=== PATIENT | female | born 1985 | race Caucasian/White ===

== ENCOUNTER 2018-09-25 17:12 | Emergency (ER) | payer OTHER, MEDICAID, SELFPAY ==
[2018-09-25 17:29] VITALS: BP 117/74; PULSE 84; RESP 20; TEMP 36.3; O2SAT 98; BMI 25.0
--- NOTE | 2018-09-25 18:58 | DI.US.S_ITS ---
PROCEDURE: US EXTREMELY NONVASC UPPER RT INDICATIONS: OPEN WOUND; POSSIBLE ABSCESS TECHNIQUE: Real-time scanning was performed of the posterior right forearm, with image documentation. COMPARISON: None. FINDINGS: Grayscale color Doppler images of the area of clinical concern demonstrates diffuse subcutaneous soft tissue edema and skin thickening without focal fluid collection or suspicious mass lesion. IMPRESSION: No sonographic evidence for abscess or phlegmon formation. Dictated by: Jeffery Segovia M.D. on 09/25/2018 at 19:50 Approved by: Jeffery Segovia M.D. on 09/25/2018 at 19:52
[2018-09-25 19:34] LABS: Add Manual Diff / Slide Review NO; Basophils Absolute Auto 0 /uL (0-100); Basophils Percent Auto 0.6 % (0-2); Eosinophils Absolute Auto 200 /uL (0-450); Eosinophils Percent Auto 2.9 % (2-4); Hemoglobin 11.1 g/dL (12.0-16.0); Lymphocytes Absolute Auto 1800 /uL (1100-4500); Lymphocytes Percent Auto 27.1 % (25-40); Mean Corpuscular HGB Conc 33.5 % (30-36); Mean Corpuscular Hemoglobin 28.8 PG (26-34); Mean Corpuscular Volume 85.9 fL (80-100); Monocytes Absolute Auto 900 /uL (0-900); Monocytes Percent Auto 13.7 % (3-14); Neutrophils Absolute Auto 3700 /uL (1500-7000); Neutrophils Percent Auto 55.7 % (50-75); Platelet Count 376 X10^3/uL (150-400); Red Blood Cell Count 3.84 X10^6/uL (4.0-5.2); Red Cell Distribution Width 14.5 % (11.6-14.8); White Blood Cell Count 6.7 X10^3/uL (4.5-11.0)
[2018-09-25 19:47] LABS: Lactate (Lactic Acid) 0.8 mmol/L (0.7-2.1)
[2018-09-25 19:50] LABS: Alanine Aminotransferase 49 IU/L (9-52); Alkaline Phosphatase 143 U/L (38-126); Aspartate Aminotransferase 45 IU/L (14-36); BUN Creatinine Ratio 34.3 (6-22); Bilirubin Total 0.2 mg/dL (0.2-1.3); Blood Urea Nitrogen 24 mg/dL (7-17); Calcium 9.4 mg/dL (8.4-10.2); Carbon Dioxide 31 mmol/L (22-32); Chloride 102 mmol/L (98-107); Estimated Glomerular Filt Rate > 60.0 mL/min (>60); Glucose 96 mg/dL (70-100); HEMOLYSIS < 15 (0-50); Sodium 140 mmol/L (137-145)
[2018-09-25 20:11] LABS: Procalcitonin 11.12 ng/mL (<0.5)
[2018-09-25] MEDS: SODIUM CHLORIDE 0.9% 1,000 ML 1000 ML IV (20:21)
[2018-09-25] MEDS: CLINDAMYCIN 600 MG/50 ML PIGGYBACK 50 MG IV (20:21)
--- NOTE | 2018-09-25 21:24 | ED.SKABFB ---
HPI - Skin/Abscess/Foreign Bdy <MARILYN Hair-BC - Last Filed: 09/25/18 21:31> General Chief complaint: Skin/Abscess/Foreign Body Stated complaint: states she has an abcess wants antibiotics Time Seen by Provider: 09/25/18 18:43 Source: patient Mode of arrival: ambulatory Limitations: no limitations History of Present Illness HPI narrative: The patient is a 33-year-old female current smoker with history of heroin abuse who presents with a chief complaint a wound on her right forearm. She states she had an abscess that started several days ago and it popped and drained. She states there is no all and her right arm. She is requesting antibiotics. She denies any fevers nausea vomiting or diarrhea. She states that she generally feels unwell. She states it started 2 weeks ago, and she stopped using heroin at that point. She denies any chest pain or shortness of breath. Related Data Home Medications Medication Instructions Recorded Confirmed albuterol sulfate [Proventil HFA] 1 puff INH #8.5 gm 12/02/11 Previous Rx's Medication Instructions Recorded clindamycin HCl 300 mg PO QID #40 cap 09/25/18 Allergies Allergy/AdvReac Type Severity Reaction Status Date / Time Sulfa (Sulfonamide Allergy Severe rash Unverified 05/29/17 12:22 Antibiotics) [SULFA (SULFONAMIDE ANTIBIOTICS)] nickel [NICKEL] Allergy Mild RASH Unverified 05/29/17 12:22 Review of Systems <MARILYN Hair- - Last Filed: 09/25/18 21:31> Review of Systems GENERAL: Denies chills, fatigue, malaise, fever, sweats. HEENT: Denies sinus pain, ear pain, sore throat, difficulty swallowing, dizziness. RESPIRATORY: Denies dyspnea, cough, wheezing, hemoptysis, sputum. CARDIOVASCULAR: Denies chest pain, palpitations, orthopnea, edema, GASTROINTESTINAL: Denies nausea, vomiting, abdominal pain, diarrhea, constipation, melena. : Denies dysuria, frequency, incontinence, hematuria, urinary retention. MUSCULOSKELETAL: denies weakness, joint pain, or bony pain SKIN: See HPI NEUROLOGIC: Denies weakness, headache, numbness, change in speech, confusion, seizures, incoordination. PSYCHIATRIC: No concerning psychosocial issues. 12 point review of systems is negative except for those stated above PFSH <Reina Gong SCIENTIFIC ASSOCIATE-BC - Last Filed: 09/25/18 21:31> Social History Smoking Status: Current every day smoker Social History Smoking Status: Current every day smoker Exam <MARILYN Hair-BC - Last Filed: 09/25/18 21:31> Narrative Exam Narrative: GENERAL: This is a well-nourished, well-developed patient, appears anxious HEAD: Atraumatic. Normocephalic. No temporal or scalp tenderness. EYES: Pupils equal round and reactive. Extraocular motions intact. No scleral icterus. No injection or drainage. ENT: Nose without bleeding, purulent drainage or septal hematoma. Throat without erythema, tonsillar hypertrophy or exudate. Uvula midline. Airway patent. NECK: Trachea midline. No JVD or lymphadenopathy. Supple, nontender, no meningeal signs. CARDIOVASCULAR: Regular rate and rhythm RESPIRATORY: Clear to auscultation. Breath sounds equal bilaterally. No wheezes, rales, or rhonchi. GASTROINTESTINAL: Abdomen soft, non-tender, nondistended. No hepato-splenomegaly, or palpable masses. No guarding. Active bowel sounds all 4 quadrants. EXTREMITIES: Full range of motion noted right wrist and elbow. Positive radial pulse. See skin exam. BACK: Nontender without deformity or crepitance. No flank tenderness. NEURO: AOx3. SKIN: 6 x 6 cm of circular erythema on lateral aspect of right forearm, with central circular 1 cm by 0.5 cm ulcer approximately 0.5 cm deep. Purulent drainage noted. T pink granulation tissue noted with no tissue necrosis. Multiple IV injection sites noted on bilateral forearms. Initial Vital Signs Initial Vital Signs: Vital Signs Temperature 97.3 F L 09/25/18 17:29 Pulse Rate 84 09/25/18 17:29 Respiratory Rate 20 09/25/18 17:29 Blood Pressure 117/74 09/25/18 17:29 Pulse Oximetry 98 09/25/18 17:29 <Kash Mcelroy DO - Last Filed: 09/26/18 00:59> Initial Vital Signs Initial Vital Signs: Vital Signs Temperature 97.3 F L 09/25/18 17:29 Pulse Rate 84 09/25/18 17:29 Respiratory Rate 20 09/25/18 17:29 Blood Pressure 117/74 09/25/18 17:29 Pulse Oximetry 98 09/25/18 17:29 Course <ALBERTA HairBC - Last Filed: 09/25/18 21:31> Orders Ordered: ED Orders 09/25/18 18:58 US extremity nonvasc upper rt Stat 09/25/18 19:11 Complete Blood Count AUTO DIFF Stat Comprehensive Metabolic Panel Stat Lactate (Lactic Acid) Stat Procalcitonin Stat 09/25/18 19:34 Blood Culture Stat 09/25/18 21:00 Wound Culture and Gram Stain Stat Discontinued Medications Clindamycin Phosphate (Cleocin) 600 mg in 50 mls @ 50 mls/hr IV NOW ONE Stop: 09/25/18 21:04 Last Infusion: 09/25/18 21:21 Dose: 0 mls/hr Admin: 09/25/18 20:21 Dose: 50 mls/hr Sodium Chloride (Normal Saline 0.9%) 1,000 mls @ 1,000 mls/hr IV BOLUS ONE Stop: 09/25/18 21:14 Last Infusion: 09/25/18 21:21 Dose: 0 mls/hr Admin: 09/25/18 20:21 Dose: 1,000 mls/hr Vital Signs - 8 hr 09/25/18 17:29 09/25/18 22:00 Temperature 97.3 F L 98.1 F Pulse Rate 84 80 Respiratory Rate 20 21 Blood Pressure 117/74 118/72 Pulse Oximetry 98 98 <Kash Mcelroy DO - Last Filed: 09/26/18 00:59> Orders Ordered: ED Orders 09/25/18 18:58 US extremity nonvasc upper rt Stat 09/25/18 19:11 Complete Blood Count AUTO DIFF Stat Comprehensive Metabolic Panel Stat Lactate (Lactic Acid) Stat Procalcitonin Stat 09/25/18 19:34 Blood Culture Stat 09/25/18 21:00 Wound Culture and Gram Stain Stat Discontinued Medications Clindamycin Phosphate (Cleocin) 600 mg in 50 mls @ 50 mls/hr IV NOW ONE Stop: 09/25/18 21:04 Last Infusion: 09/25/18 21:21 Dose: 0 mls/hr Admin: 09/25/18 20:21 Dose: 50 mls/hr Sodium Chloride (Normal Saline 0.9%) 1,000 mls @ 1,000 mls/hr IV BOLUS ONE Stop: 09/25/18 21:14 Last Infusion: 09/25/18 21:21 Dose: 0 mls/hr Admin: 09/25/18 20:21 Dose: 1,000 mls/hr Vital Signs - 8 hr 09/25/18 17:29 09/25/18 22:00 Temperature 97.3 F L 98.1 F Pulse Rate 84 80 Respiratory Rate 20 21 Blood Pressure 117/74 118/72 Pulse Oximetry 98 98 MDM - Skin/Abscess/Foreign Bdy <Reina Gong, SCIENTIFIC ASSOCIATE-BC - Last Filed: 09/25/18 21:31> Lab Data Result diagrams: 09/25/18 19:11 09/25/18 19:11 Lab Results 09/25/18 09/25/18 09/25/18 Range/Units 19:11 19:11 19:11 WBC 6.7 (4.5-11.0) X10^3/uL RBC 3.84 L (4.0-5.2) X10^6/uL Hgb 11.1 L (12.0-16.0) g/dL Hct 33.0 L (36-46) % MCV 85.9 (80-100) fL MCH 28.8 (26-34) PG MCHC 33.5 (30-36) % RDW 14.5 (11.6-14.8) % Plt Count 376 (150-400) X10^3/uL Neut % (Auto) 55.7 (50-75) % Lymph % (Auto) 27.1 (25-40) % Ramsey % (Auto) 13.7 (3-14) % Eos % (Auto) 2.9 (2-4) % Baso % (Auto) 0.6 (0-2) % Neut # (Auto) 3700 (5802-3802) /uL Lymph # (Auto) 1800 (6084-4700) /uL Ramsey # (Auto) 900 (0-900) /uL Eos # (Auto) 200 (0-450) /uL Baso # (Auto) 0 (0-100) /uL Sodium 140 (137-145) mmol/L Potassium 4.0 (3.4-5.1) mmol/L Chloride 102 (98-107) mmol/L Carbon Dioxide 31 (22-32) mmol/L BUN 24 H (7-17) mg/dL Creatinine 0.70 (0.52-1.04) mg/dL Estimated GFR > 60.0 (>60) mL/min BUN/Creatinine Ratio 34.3 H (6-22) Glucose 96 (70-100) mg/dL Lactate (0.7-2.1) mmol/L Calcium 9.4 (8.4-10.2) mg/dL Total Bilirubin 0.2 (0.2-1.3) mg/dL AST 45 H (14-36) IU/L ALT 49 (9-52) IU/L Alkaline Phosphatase 143 H (38-126) U/L Total Protein 8.0 (6.3-8.2) g/dL Albumin 4.0 (3.5-5.0) g/dL Globulin 4.0 (1.7-4.1) g/dL Albumin/Globulin Ratio 1.0 (1.0-2.8) Procalcitonin 11.12 H (<0.5) ng/mL 09/25/18 Range/Units 19:11 WBC (4.5-11.0) X10^3/uL RBC (4.0-5.2) X10^6/uL Hgb (12.0-16.0) g/dL Hct (36-46) % MCV (80-100) fL MCH (26-34) PG MCHC (30-36) % RDW (11.6-14.8) % Plt Count (150-400) X10^3/uL Neut % (Auto) (50-75) % Lymph % (Auto) (25-40) % Ramsey % (Auto) (3-14) % Eos % (Auto) (2-4) % Baso % (Auto) (0-2) % Neut # (Auto) (7397-0527) /uL Lymph # (Auto) (2829-5984) /uL Ramsey # (Auto) (0-900) /uL Eos # (Auto) (0-450) /uL Baso # (Auto) (0-100) /uL Sodium (137-145) mmol/L Potassium (3.4-5.1) mmol/L Chloride (98-107) mmol/L Carbon Dioxide (22-32) mmol/L BUN (7-17) mg/dL Creatinine (0.52-1.04) mg/dL Estimated GFR (>60) mL/min BUN/Creatinine Ratio (6-22) Glucose (70-100) mg/dL Lactate 0.8 (0.7-2.1) mmol/L Calcium (8.4-10.2) mg/dL Total Bilirubin (0.2-1.3) mg/dL AST (14-36) IU/L ALT (9-52) IU/L Alkaline Phosphatase (38-126) U/L Total Protein (6.3-8.2) g/dL Albumin (3.5-5.0) g/dL Globulin (1.7-4.1) g/dL Albumin/Globulin Ratio (1.0-2.8) Procalcitonin (<0.5) ng/mL Imaging Data Arm ultrasound: Radiologist's impression: [address] [address] Ultrasound Report Signed Patient: Sheila Greco [facility]#: [id number] : 1985Acct:[id number] Age/Sex: 33 / FDate of Service: 09/25/18 Loc: ED Accession Number: [id number] Procedure: US extremity nonvasc upper rt Ordering Provider: Reina Gong PROCEDURE: US EXTREMELY NONVASC UPPER RT INDICATIONS: OPEN WOUND; POSSIBLE ABSCESS TECHNIQUE: Real-time scanning was performed of the posterior right forearm, with image documentation. COMPARISON: None. FINDINGS: Grayscale color Doppler images of the area of clinical concern demonstrates diffuse subcutaneous soft tissue edema and skin thickening without focal fluid collection or suspicious mass lesion. IMPRESSION: No sonographic evidence for abscess or phlegmon formation. Dictated by: Jeffery Segovia M.D. on 09/25/2018 at 19:50 Approved by: Jeffery Segovia M.D. on 09/25/2018 at 19:52 [facility] Narrative Medical decision making narrative: The patient is a 33-year-old female who presents with a chief complaint of an abscess likely related to IV drug use. She is nontoxic appearing, does not have any leukocytosis, has a normal lactate and is tolerating p.o. was in the emergency department. She is able to eat a sandwich and crackers and drink juice in the emergency department. She does have an elevated procalcitonin indicating a bacterial infection, which is known at this point. However she is nontoxic and not septic. Thus a trial of a p.o. antibiotics is warranted. The tissue and the wound is pink granulation tissue. She is afebrile throughout her stay in the emergency department. Given her concerning lack of possible follow-up, she is referred to the wound clinic at [facility]. Information was faxed over for her. I also gave her the contact information. She was also referred back to her old PCP as well as [facility] health enterprise resource planning consultant. I discussed at length strict return precautions including fever, ill keep down fluids etc. Wound dressed by nursing staff. Patient has no questions or concerns and states understanding at this time. <Kash Mcelroy, - Last Filed: 09/26/18 00:59> Lab Data Lab Results 09/25/18 09/25/18 09/25/18 Range/Units 19:11 19:11 19:11 WBC 6.7 (4.5-11.0) X10^3/uL RBC 3.84 L (4.0-5.2) X10^6/uL Hgb 11.1 L (12.0-16.0) g/dL Hct 33.0 L (36-46) % MCV 85.9 (80-100) fL MCH 28.8 (26-34) PG MCHC 33.5 (30-36) % RDW 14.5 (11.6-14.8) % Plt Count 376 (150-400) X10^3/uL Neut % (Auto) 55.7 (50-75) % Lymph % (Auto) 27.1 (25-40) % Ramsey % (Auto) 13.7 (3-14) % Eos % (Auto) 2.9 (2-4) % Baso % (Auto) 0.6 (0-2) % Neut # (Auto) 3700 (4078-0894) /uL Lymph # (Auto) 1800 (0971-6313) /uL Ramsey # (Auto) 900 (0-900) /uL Eos # (Auto) 200 (0-450) /uL Baso # (Auto) 0 (0-100) /uL Sodium 140 (137-145) mmol/L Potassium 4.0 (3.4-5.1) mmol/L Chloride 102 (98-107) mmol/L Carbon Dioxide 31 (22-32) mmol/L BUN 24 H (7-17) mg/dL Creatinine 0.70 (0.52-1.04) mg/dL Estimated GFR > 60.0 (>60) mL/min BUN/Creatinine Ratio 34.3 H (6-22) Glucose 96 (70-100) mg/dL Lactate (0.7-2.1) mmol/L Calcium 9.4 (8.4-10.2) mg/dL Total Bilirubin 0.2 (0.2-1.3) mg/dL AST 45 H (14-36) IU/L ALT 49 (9-52) IU/L Alkaline Phosphatase 143 H (38-126) U/L Total Protein 8.0 (6.3-8.2) g/dL Albumin 4.0 (3.5-5.0) g/dL Globulin 4.0 (1.7-4.1) g/dL Albumin/Globulin Ratio 1.0 (1.0-2.8) Procalcitonin 11.12 H (<0.5) ng/mL 09/25/18 Range/Units 19:11 WBC (4.5-11.0) X10^3/uL RBC (4.0-5.2) X10^6/uL Hgb (12.0-16.0) g/dL Hct (36-46) % MCV (80-100) fL MCH (26-34) PG MCHC (30-36) % RDW (11.6-14.8) % Plt Count (150-400) X10^3/uL Neut % (Auto) (50-75) % Lymph % (Auto) (25-40) % Ramsey % (Auto) (3-14) % Eos % (Auto) (2-4) % Baso % (Auto) (0-2) % Neut # (Auto) (9260-9811) /uL Lymph # (Auto) (7859-5774) /uL Ramsey # (Auto) (0-900) /uL Eos # (Auto) (0-450) /uL Baso # (Auto) (0-100) /uL Sodium (137-145) mmol/L Potassium (3.4-5.1) mmol/L Chloride (98-107) mmol/L Carbon Dioxide (22-32) mmol/L BUN (7-17) mg/dL Creatinine (0.52-1.04) mg/dL Estimated GFR (>60) mL/min BUN/Creatinine Ratio (6-22) Glucose (70-100) mg/dL Lactate 0.8 (0.7-2.1) mmol/L Calcium (8.4-10.2) mg/dL Total Bilirubin (0.2-1.3) mg/dL AST (14-36) IU/L ALT (9-52) IU/L Alkaline Phosphatase (38-126) U/L Total Protein (6.3-8.2) g/dL Albumin (3.5-5.0) g/dL Globulin (1.7-4.1) g/dL Albumin/Globulin Ratio (1.0-2.8) Procalcitonin (<0.5) ng/mL Discharge Plan Departure Patient Disposition: Home Clinical Impression: Wound infection Discharge Date/Time: 09/25/18 22:00 Interventions: ED Discharge Assessment Last Done: 09/25/18 22:00 Instructions: DI for Wound Infection Activity Restrictions/Additional Instructions: I have started you on antibiotics for your wound infection. I have sent over referral information for wound care. They can be contacted at [phone]. A wound culture is pending. If you need different antibiotics, we will call you depending on the culture results. Please monitor for fever, inability keep down fluids or any signs of worsening. Please come back to the emergency department for any acute concerns. Prescriptions: New clindamycin HCl 300 mg capsule 300 mg PO QID Qty: 40 RF: 0 No Action albuterol sulfate [Proventil HFA] 90 MCG/PUFF HFA aerosol inhaler 1 puff INH Qty: 8.5 RF: 0 Referrals: [facility] [Outside] Finn Serrano MD [Primary Care Provider] - <Kash Mcelroy DO - Last Filed: 09/26/18 00:59> Cosign ED Attending Sravanthi Attestation: I was available for consultation during this patient's emergency department encounter
--- NOTE | 2018-09-25 21:30 | ED_ITS ---
HPI - Skin/Abscess/Foreign Bdy <MARILYN Hair-BC - Last Filed: 09/25/18 21:31> General Chief complaint: Skin/Abscess/Foreign Body Stated complaint: states she has an abcess wants antibiotics Time Seen by Provider: 09/25/18 18:43 Source: patient Mode of arrival: ambulatory Limitations: no limitations History of Present Illness HPI narrative: The patient is a 33-year-old female current smoker with history of heroin abuse who presents with a chief complaint a wound on her right forearm . She states she had an abscess that started several days ago and it popped and drained. She states there is no all and her right arm. She is requesting antibiotics. She denies any fevers nausea vomiting or diarrhea. She states that she generally feels unwell. She states it started 2 weeks ago, and she stopped using heroin at that point. She denies any chest pain or shortness of breath. Related Data Home Medications Medication Instructions Recorded Confirmed albuterol sulfate [Proventil HFA] 1 puff INH #8.5 gm 12/02/11 Previous Rx's Medication Instructions Recorded clindamycin HCl 300 mg PO QID #40 cap 09/25/18 Allergies Allergy/AdvReac Type Severity Reaction Status Date / Time Sulfa (Sulfonamide Allergy Severe rash Unverified 05/29/17 12:22 Antibiotics) [SULFA (SULFONAMIDE ANTIBIOTICS)] nickel [NICKEL] Allergy Mild RASH Unverified 05/29/17 12:22 Review of Systems <MARILYN Hair- - Last Filed: 09/25/18 21:31> Review of Systems GENERAL: Denies chills, fatigue, malaise, fever, sweats. HEENT: Denies sinus pain, ear pain, sore throat, difficulty swallowing, dizziness. RESPIRATORY: Denies dyspnea, cough, wheezing, hemoptysis, sputum. CARDIOVASCULAR: Denies chest pain, palpitations, orthopnea, edema, GASTROINTESTINAL: Denies nausea, vomiting, abdominal pain, diarrhea, constipation, melena. : Denies dysuria, frequency, incontinence, hematuria, urinary retention. MUSCULOSKELETAL: denies weakness, joint pain, or bony pain SKIN: See HPI NEUROLOGIC: Denies weakness, headache, numbness, change in speech, confusion, seizures, incoordination. PSYCHIATRIC: No concerning psychosocial issues. 12 point review of systems is negative except for those stated above PFSH <Reina Gong POULTRY PINNER-BC - Last Filed: 09/25/18 21:31> Social History Smoking Status: Current every day smoker Social History Smoking Status: Current every day smoker Exam <MARILYN Hair-BC - Last Filed: 09/25/18 21:31> Narrative Exam Narrative: GENERAL: This is a well-nourished, well-developed patient, appears anxious HEAD: Atraumatic. Normocephalic. No temporal or scalp tenderness. EYES: Pupils equal round and reactive. Extraocular motions intact. No scleral icterus. No injection or drainage. ENT: Nose without bleeding, purulent drainage or septal hematoma. Throat without erythema, tonsillar hypertrophy or exudate. Uvula midline. Airway patent. NECK: Trachea midline. No JVD or lymphadenopathy. Supple, nontender, no meningeal signs. CARDIOVASCULAR: Regular rate and rhythm RESPIRATORY: Clear to auscultation. Breath sounds equal bilaterally. No wheezes, rales, or rhonchi. GASTROINTESTINAL: Abdomen soft, non-tender, nondistended. No hepato- splenomegaly, or palpable masses. No guarding. Active bowel sounds all 4 quadrants. EXTREMITIES: Full range of motion noted right wrist and elbow. Positive radial pulse. See skin exam. BACK: Nontender without deformity or crepitance. No flank tenderness. NEURO: AOx3. SKIN: 6 x 6 cm of circular erythema on lateral aspect of right forearm, with central circular 1 cm by 0.5 cm ulcer approximately 0.5 cm deep. Purulent drainage noted. T pink granulation tissue noted with no tissue necrosis. Multiple IV injection sites noted on bilateral forearms. Initial Vital Signs Initial Vital Signs: Vital Signs Temperature 97.3 F L 09/25/18 17:29 Pulse Rate 84 09/25/18 17:29 Respiratory Rate 20 09/25/18 17:29 Blood Pressure 117/74 09/25/18 17:29 Pulse Oximetry 98 09/25/18 17:29 <Kash Mcelroy DO - Last Filed: 09/26/18 00:59> Initial Vital Signs Initial Vital Signs: Vital Signs Temperature 97.3 F L 09/25/18 17:29 Pulse Rate 84 09/25/18 17:29 Respiratory Rate 20 09/25/18 17:29 Blood Pressure 117/74 09/25/18 17:29 Pulse Oximetry 98 09/25/18 17:29 Course <ALBERTA HairBC - Last Filed: 09/25/18 21:31> Orders Ordered: ED Orders 09/25/18 18:58 US extremity nonvasc upper rt Stat 09/25/18 19:11 Complete Blood Count AUTO DIFF Stat Comprehensive Metabolic Panel Stat Lactate (Lactic Acid) Stat Procalcitonin Stat 09/25/18 19:34 Blood Culture Stat 09/25/18 21:00 Wound Culture and Gram Stain Stat Discontinued Medications Clindamycin Phosphate (Cleocin) 600 mg in 50 mls @ 50 mls/hr IV NOW ONE Stop: 09/25/18 21:04 Last Infusion: 09/25/18 21:21 Dose: 0 mls/hr Admin: 09/25/18 20:21 Dose: 50 mls/hr Sodium Chloride (Normal Saline 0.9%) 1,000 mls @ 1,000 mls/hr IV BOLUS ONE Stop: 09/25/18 21:14 Last Infusion: 09/25/18 21:21 Dose: 0 mls/hr Admin: 09/25/18 20:21 Dose: 1,000 mls/hr Vital Signs - 8 hr 09/25/18 17:29 09/25/18 22:00 Temperature 97.3 F L 98.1 F Pulse Rate 84 80 Respiratory Rate 20 21 Blood Pressure 117/74 118/72 Pulse Oximetry 98 98 <Kash Mcelroy DO - Last Filed: 09/26/18 00:59> Orders Ordered: ED Orders 09/25/18 18:58 US extremity nonvasc upper rt Stat 09/25/18 19:11 Complete Blood Count AUTO DIFF Stat Comprehensive Metabolic Panel Stat Lactate (Lactic Acid) Stat Procalcitonin Stat 09/25/18 19:34 Blood Culture Stat 09/25/18 21:00 Wound Culture and Gram Stain Stat Discontinued Medications Clindamycin Phosphate (Cleocin) 600 mg in 50 mls @ 50 mls/hr IV NOW ONE Stop: 09/25/18 21:04 Last Infusion: 09/25/18 21:21 Dose: 0 mls/hr Admin: 09/25/18 20:21 Dose: 50 mls/hr Sodium Chloride (Normal Saline 0.9%) 1,000 mls @ 1,000 mls/hr IV BOLUS ONE Stop: 09/25/18 21:14 Last Infusion: 09/25/18 21:21 Dose: 0 mls/hr Admin: 09/25/18 20:21 Dose: 1,000 mls/hr Vital Signs - 8 hr 09/25/18 17:29 09/25/18 22:00 Temperature 97.3 F L 98.1 F Pulse Rate 84 80 Respiratory Rate 20 21 Blood Pressure 117/74 118/72 Pulse Oximetry 98 98 MDM - Skin/Abscess/Foreign Bdy <Reina Gong, POULTRY PINNER-BC - Last Filed: 09/25/18 21:31> Lab Data Result diagrams: 09/25/18 19:11 09/25/18 19:11 Lab Results 09/25/18 09/25/18 09/25/18 Range/Units 19:11 19:11 19:11 WBC 6.7 (4.5-11.0) X10^3/uL RBC 3.84 L (4.0-5.2) X10^6/uL Hgb 11.1 L (12.0-16.0) g/dL Hct 33.0 L (36-46) % MCV 85.9 (80-100) fL MCH 28.8 (26-34) PG MCHC 33.5 (30-36) % RDW 14.5 (11.6-14.8) % Plt Count 376 (150-400) X10^3/uL Neut % (Auto) 55.7 (50-75) % Lymph % (Auto) 27.1 (25-40) % Walton % (Auto) 13.7 (3-14) % Eos % (Auto) 2.9 (2-4) % Baso % (Auto) 0.6 (0-2) % Neut # (Auto) 3700 (6685-8142) /uL Lymph # (Auto) 1800 (6496-2654) /uL Walton # (Auto) 900 (0-900) /uL Eos # (Auto) 200 (0-450) /uL Baso # (Auto) 0 (0-100) /uL Sodium 140 (137-145) mmol/L Potassium 4.0 (3.4-5.1) mmol/L Chloride 102 (98-107) mmol/L Carbon Dioxide 31 (22-32) mmol/L BUN 24 H (7-17) mg/dL Creatinine 0.70 (0.52-1.04) mg/dL Estimated GFR > 60.0 (>60) mL/min BUN/Creatinine Ratio 34.3 H (6-22) Glucose 96 (70-100) mg/dL Lactate (0.7-2.1) mmol/L Calcium 9.4 (8.4-10.2) mg/dL Total Bilirubin 0.2 (0.2-1.3) mg/dL AST 45 H (14-36) IU/L ALT 49 (9-52) IU/L Alkaline Phosphatase 143 H (38-126) U/L Total Protein 8.0 (6.3-8.2) g/dL Albumin 4.0 (3.5-5.0) g/dL Globulin 4.0 (1.7-4.1) g/dL Albumin/Globulin Ratio 1.0 (1.0-2.8) Procalcitonin 11.12 H (<0.5) ng/mL 09/25/18 Range/Units 19:11 WBC (4.5-11.0) X10^3/uL RBC (4.0-5.2) X10^6/uL Hgb (12.0-16.0) g/dL Hct (36-46) % MCV (80-100) fL MCH (26-34) PG MCHC (30-36) % RDW (11.6-14.8) % Plt Count (150-400) X10^3/uL Neut % (Auto) (50-75) % Lymph % (Auto) (25-40) % Walton % (Auto) (3-14) % Eos % (Auto) (2-4) % Baso % (Auto) (0-2) % Neut # (Auto) (1563-5026) /uL Lymph # (Auto) (9782-3332) /uL Walton # (Auto) (0-900) /uL Eos # (Auto) (0-450) /uL Baso # (Auto) (0-100) /uL Sodium (137-145) mmol/L Potassium (3.4-5.1) mmol/L Chloride (98-107) mmol/L Carbon Dioxide (22-32) mmol/L BUN (7-17) mg/dL Creatinine (0.52-1.04) mg/dL Estimated GFR (>60) mL/min BUN/Creatinine Ratio (6-22) Glucose (70-100) mg/dL Lactate 0.8 (0.7-2.1) mmol/L Calcium (8.4-10.2) mg/dL Total Bilirubin (0.2-1.3) mg/dL AST (14-36) IU/L ALT (9-52) IU/L Alkaline Phosphatase (38-126) U/L Total Protein (6.3-8.2) g/dL Albumin (3.5-5.0) g/dL Globulin (1.7-4.1) g/dL Albumin/Globulin Ratio (1.0-2.8) Procalcitonin (<0.5) ng/mL Imaging Data Arm ultrasound: Radiologist's impression: [address] [address] Ultrasound Report Signed Patient: Sheila Greco [facility]#: [id number] : 1985Acct:[id number] Age/Sex: 33 / FDate of Service: 09/25/18 Loc: ED Accession Number: [id number] Procedure: US extremity nonvasc upper rt Ordering Provider: Reina Gong PROCEDURE: US EXTREMELY NONVASC UPPER RT INDICATIONS: OPEN WOUND; POSSIBLE ABSCESS TECHNIQUE: Real-time scanning was performed of the posterior right forearm, with image documentation. COMPARISON: None. FINDINGS: Grayscale color Doppler images of the area of clinical concern demonstrates diffuse subcutaneous soft tissue edema and skin thickening without focal fluid collection or suspicious mass lesion. IMPRESSION: No sonographic evidence for abscess or phlegmon formation. Dictated by: Jeffery Segovia M.D. on 09/25/2018 at 19:50 Approved by: Jeffery Segovia M.D. on 09/25/2018 at 19:52 [facility] Narrative Medical decision making narrative: The patient is a 33-year-old female who presents with a chief complaint of an abscess likely related to IV drug use. She is nontoxic appearing, does not have any leukocytosis, has a normal lactate and is tolerating p.o. was in the emergency department. She is able to eat a sandwich and crackers and drink juice in the emergency department. She does eugene ve an elevated procalcitonin indicating a bacterial infection, which is known at this point. However she is nontoxic and not septic. Thus a trial of a p.o. antibiotics is warranted. The tissue and the wound is pink granulation tissue. She is afebrile throughout her stay in the emergency department. Given her concerning lack of possible follow-up, she is referred to the wound clinic at [facility]. Information was faxed over for her. I also gave her the contact information. She was also referred back to her old PCP as well as [facility] health natural resource specialist. I discussed at length strict return precautions including fever, ill keep down fluids etc. Wound dressed by nursing staff. Patient has no questions or concerns and states understanding at this time. <Kash Mcelroy, - Last Filed: 09/26/18 00:59> Lab Data Lab Results 09/25/18 09/25/18 09/25/18 Range/Units 19:11 19:11 19:11 WBC 6.7 (4.5-11.0) X10^3/uL RBC 3.84 L (4.0-5.2) X10^6/uL Hgb 11.1 L (12.0-16.0) g/dL Hct 33.0 L (36-46) % MCV 85.9 (80-100) fL MCH 28.8 (26-34) PG MCHC 33.5 (30-36) % RDW 14.5 (11.6-14.8) % Plt Count 376 (150-400) X10^3/uL Neut % (Auto) 55.7 (50-75) % Lymph % (Auto) 27.1 (25-40) % Walton % (Auto) 13.7 (3-14) % Eos % (Auto) 2.9 (2-4) % Baso % (Auto) 0.6 (0-2) % Neut # (Auto) 3700 (0308-5979) /uL Lymph # (Auto) 1800 (6688-4710) /uL Walton # (Auto) 900 (0-900) /uL Eos # (Auto) 200 (0-450) /uL Baso # (Auto) 0 (0-100) /uL Sodium 140 (137-145) mmol/L Potassium 4.0 (3.4-5.1) mmol/L Chloride 102 (98-107) mmol/L Carbon Dioxide 31 (22-32) mmol/L BUN 24 H (7-17) mg/dL Creatinine 0.70 (0.52-1.04) mg/dL Estimated GFR > 60.0 (>60) mL/min BUN/Creatinine Ratio 34.3 H (6-22) Glucose 96 (70-100) mg/dL Lactate (0.7-2.1) mmol/L Calcium 9.4 (8.4-10.2) mg/dL Total Bilirubin 0.2 (0.2-1.3) mg/dL AST 45 H (14-36) IU/L ALT 49 (9-52) IU/L Alkaline Phosphatase 143 H (38-126) U/L Total Protein 8.0 (6.3-8.2) g/dL Albumin 4.0 (3.5-5.0) g/dL Globulin 4.0 (1.7-4.1) g/dL Albumin/Globulin Ratio 1.0 (1.0-2.8) Procalcitonin 11.12 H (<0.5) ng/mL 09/25/18 Range/Units 19:11 WBC (4.5-11.0) X10^3/uL RBC (4.0-5.2) X10^6/uL Hgb (12.0-16.0) g/dL Hct (36-46) % MCV (80-100) fL MCH (26-34) PG MCHC (30-36) % RDW (11.6-14.8) % Plt Count (150-400) X10^3/uL Neut % (Auto) (50-75) % Lymph % (Auto) (25-40) % Walton % (Auto) (3-14) % Eos % (Auto) (2-4) % Baso % (Auto) (0-2) % Neut # (Auto) (1329-5719) /uL Lymph # (Auto) (5680-7917) /uL Walton # (Auto) (0-900) /uL Eos # (Auto) (0-450) /uL Baso # (Auto) (0-100) /uL Sodium (137-145) mmol/L Potassium (3.4-5.1) mmol/L Chloride (98-107) mmol/L Carbon Dioxide (22-32) mmol/L BUN (7-17) mg/dL Creatinine (0.52-1.04) mg/dL Estimated GFR (>60) mL/min BUN/Creatinine Ratio (6-22) Glucose (70-100) mg/dL Lactate 0.8 (0.7-2.1) mmol/L Calcium (8.4-10.2) mg/dL Total Bilirubin (0.2-1.3) mg/dL AST (14-36) IU/L ALT (9-52) IU/L Alkaline Phosphatase (38-126) U/L Total Protein (6.3-8.2) g/dL Albumin (3.5-5.0) g/dL Globulin (1.7-4.1) g/dL Albumin/Globulin Ratio (1.0-2.8) Procalcitonin (<0.5) ng/mL Discharge Plan Departure Patient Disposition: Home Clinical Impression: Wound infection Discharge Date/Time: 09/25/18 22:00 Interventions: ED Discharge Assessment Last Done: 09/25/18 22:00 Instructions: DI for Wound Infection Activity Restrictions/Additional Instructions: I have started you on antibiotics for your wound infection. I have sent over referral information for wound care. They can be contacted at [phone]. A wound culture is pending. If you need different antibiotics, we will call you depending on the culture results. Please monitor for fever, inability keep down fluids or any signs of worsening. Please come back to the emergency department for any acute concerns. Prescriptions: New clindamycin HCl 300 mg capsule 300 mg PO QID Qty: 40 RF: 0 No Action albuterol sulfate [Proventil HFA] 90 MCG/PUFF HFA aerosol inhaler 1 puff INH Qty: 8.5 RF: 0 Referrals: Merged With [facility] [Outside] Finn Serrano MD [Primary Care Provider] - <Kash Mcelroy DO - Last Filed: 09/26/18 00:59> Cosign ED Attending Sravanthi Attestation: I was available for consultation during this patient's emergency department encounter
[2018-09-25 22:00] VITALS: BP 118/72; PULSE 80; RESP 21; TEMP 36.7; O2SAT 98
== END 2018-09-25 22:00 | disposition home or self-care (01) ==
PROVIDERS: Emergency Provider Nurse Practitioner Family; Family Provider Family Medicine; PCP Family Medicine
DX: L08.9 Local infection of the skin and subcutaneous tissue, unspecified (principal)
CPT/HCPCS: 36415; 36591; 76882; 80053; 83605; 84145; 85025; 87040; 87070; 87075; 87077; 87147; 87186; 87205; 96365; 99283; 99284